=== PATIENT | female | born 1945 | race Hispanic/Latino ===

== ENCOUNTER 2021-09-03 11:16 | Inpatient (IN) | payer MEDICARE ==
[~2021-09-03] VITALS: Ht 154.9 cm; Wt 85.8 kg
[2021-09-03 11:39] LABS: BASOPHILS % (AUTO) 0.4 % (0.0-5.0); EOSINOPHILS % (AUTO) 1.5 % (0.0-8.0); HEMATOCRIT 39.3 % (36-48); LYMPHOCYTES % (AUTO) 16.2 % (21.0-51.0); MEAN CORPUSCULAR HEMOGLOBIN 32.3 pg (27.0-33.0); MEAN CORPUSCULAR HGB CONC 32.3 g/dL (32.0-36.0); MONOCYTES % (AUTO) 5.2 % (3.0-13.0); PLATELET COUNT (AUTO) 225 K/uL (130-400); RED BLOOD CELL COUNT(AUTO) 3.93 MIL/uL (4.00-5.50); RED CELL DISTRIBUTION WIDTH 13.4 % (11.0-15.5); WHITE BLOOD COUNT (AUTO) 13.8 K/uL (4.8-10.8)
[2021-09-03 11:53] LABS: CREATININE 0.8 mg/dL (0.5-1.5); POTASSIUM 3.6 mmol/L (3.5-5.1); PROTHROMBIN TIME 10.9 SEC (9.6-11.6)
[2021-09-03 11:54] LABS: PARTIAL THROMBOPLASTIN TIME 26.4 SEC (26.3-35.5)
[2021-09-03 12:04] LABS: ALBUMIN 3.3 g/dL (3.5-5.0); BILIRUBIN,TOTAL 0.3 mg/dL (0.2-1.0); MAGNESIUM 2.1 mg/dL (1.80-2.40); TOTAL PROTEIN, SERUM 6.6 g/dL (6.0-8.3)
[2021-09-03 12:20] LABS: B-TYPE NATRIURETIC PEPTIDE 19 pg/mL (0-100)
[2021-09-03] MEDS ORDERED: ENOXAPARIN SODIUM 80 MG/0.8 ML SQ SCH (12:30)
[2021-09-03] MEDS ORDERED: ASPIRIN 325MG TAB PO SCH (12:30)
[2021-09-03] MEDS ORDERED: MORPHINE 4 MG SYG IVP SCH (12:30)
[2021-09-03] MEDS ORDERED: NITROGLYCERIN 1GM OINT 1 INCH/1GM TD SCH (12:30)
[2021-09-03 13:07] LABS: APPEARANCE,URINE Clear (CLEAR); BILIRUBIN,URINE Negative (NEGATIVE); COLOR,URINE Yellow (YELLOW); GLUCOSE, URINE (UA) Negative (NEGATIVE); KETONES,URINE Negative (NEGATIVE); LEUKOCYTE ESTERASE ,URINE Moderate (NEGATIVE); NITRATE,URINE Negative (NEGATIVE); OCCULT BLOOD,URINE Negative (NEGATIVE); PH,URINE 5.5 (5.0-8.0); PROTEIN,URINE Negative (NEGATIVE); UROBILINOGEN,URINE 0.2 mg/dL (0.2-1.0)
[2021-09-03 13:42] LABS: BACTERIA,URINE Few /HPF (None Seen); RBC,URINE 0-1 /HPF (0-1)
[2021-09-03] MEDS ORDERED: LACTULOSE 20 GM/30 ML UDCUP PO PRN (14:30)
[2021-09-03] MEDS ORDERED: ACETAMINOPHEN 325 MG TAB PO PRN ×2 (14:30)
[2021-09-03] MEDS ORDERED: NITROGLYCERIN 1GM OINT 1 INCH/1GM TD PRN (14:30)
[2021-09-03] MEDS ORDERED: HYDRALAZINE 20MG/ML VIAL IV PRN (14:30)
[2021-09-03] MEDS ORDERED: ONDANSETRON 4MG INJ IV PRN (14:30)
[2021-09-03] MEDS ORDERED: DIPHENHYDRAMINE HCL 25 MG CAPSULE PO PRN (14:30)
[2021-09-03] MEDS: FAMOTIDINE 20MG TAB PO SCH (14:54)
[2021-09-03] MEDS: KETOROLAC 15MG/ML VIAL (15MG/ML) IM PRN (20:08)
[2021-09-03] MEDS: LEVOFLOXACIN 500 MG/D5W 100 ML 100 ML IV SCH (22:52)
[2021-09-04] MEDS ORDERED: KETOROLAC 30MG VIAL (30MG/ML) ONE ×2 (06:35→18:02)
[2021-09-04] MEDS: KETOROLAC 15MG/ML VIAL (15MG/ML) IM PRN ×2 (06:37→18:11)
[2021-09-04] MEDS: ASPIRIN 81MG CHEW TAB PO SCH (09:00)
[2021-09-04 09:27] LABS: HEMATOCRIT 37.4 % (36-48); MEAN CORPUSCULAR HGB CONC 32.4 g/dL (32.0-36.0); MEAN CORPUSCULAR VOLUME 98.9 fL (79-99); RED BLOOD CELL COUNT(AUTO) 3.78 MIL/uL (4.00-5.50); RED CELL DISTRIBUTION WIDTH 13.7 % (11.0-15.5); WHITE BLOOD COUNT (AUTO) 11.9 K/uL (4.8-10.8)
[2021-09-04] MEDS: METOPROLOL TARTRATE 50 MG TAB PO SCH (09:30)
[2021-09-04] MEDS: ISOSORBIDE MONONITRATE 20 MG TABLET PO SCH ×2 (09:30→22:18)
[2021-09-04 09:44] LABS: CREATININE 0.9 mg/dL (0.5-1.5); POTASSIUM 3.8 mmol/L (3.5-5.1)
[2021-09-04] MEDS: FAMOTIDINE 20MG TAB PO SCH (10:05)
[2021-09-04] MEDS: ENOXAPARIN SODIUM 40 MG/0.4 ML SYRINGE SQ SCH (10:05)
[2021-09-04] MEDS ORDERED: ISOS30TA92 PO (10:57)
[2021-09-04] MEDS ORDERED: MIRA50TA PO (10:57)
[2021-09-04] MEDS ORDERED: CETI10TA57 PO (10:57)
[2021-09-04] MEDS ORDERED: OMEP40CA21 PO (10:57)
[2021-09-04] MEDS ORDERED: METO-408 PO (10:57)
[2021-09-04] MEDS ORDERED: DULO60CA64 PO (10:57)
[2021-09-04] MEDS ORDERED: MECO10005 PO (10:57)
[2021-09-04] MEDS ORDERED: ASPI-1197 PO (10:57)
[2021-09-04] MEDS ORDERED: LORA0.5T83 PO (10:57)
[2021-09-04] MEDS ORDERED: FLUT16H NASAL (10:57)
[2021-09-04] MEDS: LEVOFLOXACIN 500 MG/D5W 100 ML 100 ML IV SCH (22:18)
[2021-09-04] MEDS ORDERED: ACETAMINOPHEN WITH CODEINE 1 TAB TAB PO ONE (22:30)
[2021-09-04] MEDS ORDERED: ACETAMINOPHEN WITH CODEINE 1 TAB TAB ONE (22:34)
[2021-09-04 23:40] VITALS: BP 140/77
[2021-09-05 04:00] VITALS: BP 121/63
[2021-09-05 07:14] LABS: HEMATOCRIT 33.6 % (36-48); MEAN CORPUSCULAR HEMOGLOBIN 32.1 pg (27.0-33.0); MEAN CORPUSCULAR HGB CONC 32.1 g/dL (32.0-36.0); RED BLOOD CELL COUNT(AUTO) 3.36 MIL/uL (4.00-5.50); RED CELL DISTRIBUTION WIDTH 13.7 % (11.0-15.5); WHITE BLOOD COUNT (AUTO) 9.6 K/uL (4.8-10.8)
[2021-09-05 07:23] LABS: CREATININE 0.9 mg/dL (0.5-1.5); POTASSIUM 3.9 mmol/L (3.5-5.1)
[2021-09-05 08:00] VITALS: BP 132/56
[2021-09-05] MEDS: FAMOTIDINE 20MG TAB PO SCH (08:02)
[2021-09-05] MEDS: ASPIRIN 81MG CHEW TAB PO SCH (08:03)
[2021-09-05] MEDS: METOPROLOL TARTRATE 50 MG TAB PO SCH (08:03)
[2021-09-05] MEDS: ISOSORBIDE MONONITRATE 20 MG TABLET PO SCH (08:03)
[2021-09-05] MEDS: ENOXAPARIN SODIUM 40 MG/0.4 ML SYRINGE SQ SCH (08:04)
[2021-09-05] MEDS ORDERED: NITR100C PO (08:41)
== END 2021-09-05 09:30 | disposition home or self-care (01) | DRG 303 ==
LOC: EDH 11:16 → EDHIP 14:26 → 4CH 09-05 00:10
PROVIDERS: ADMIT Internal Medicine; ATTEND Internal Medicine
DX: I25.110 Atherosclerotic heart disease of native coronary artery with unstable angina pectoris (principal); N39.0 Urinary tract infection, site not specified; E78.5 Hyperlipidemia, unspecified; I10 Essential (primary) hypertension; M06.9 Rheumatoid arthritis, unspecified; M79.7 Fibromyalgia; F32.A Depression, unspecified; Z20.822 Contact with and (suspected) exposure to COVID-19; Z88.8 Allergy status to other drugs, medicaments and biological substances; Z82.49 Family history of ischemic heart disease and other diseases of the circulatory system; Z90.49 Acquired absence of other specified parts of digestive tract; Z90.710 Acquired absence of both cervix and uterus; F41.9 Anxiety disorder, unspecified
CPT/HCPCS: 36415; 71045; 80048; 80053; 80061; 81001; 83735; 83874; 83880; 84484; 85025; 85027; 85378; 85610; 85651; 85730; 87088; 87635; 93005; 93970; G0378; J1650; J1885; J1956; J2270

== ENCOUNTER 2021-09-16 13:28 | Emergency (ER) | payer MEDICARE ==
[~2021-09-16] VITALS: Ht 154.9 cm; Wt 85.3 kg
[~2021-09-16 13:28] MED LIST: ASPI-1197 PO; CETI10TA57 PO; DULO60CA64 PO; FLUT16H NASAL; ISOS30TA92 PO; LORA0.5T83 PO; MECO10005 PO; METO-408 PO; MIRA50TA PO; NITR100C PO; OMEP40CA21 PO
[2021-09-16 13:35] VITALS: BP 164/79
[2021-09-16] MEDS ORDERED: ACETAMINOPHEN 500 MG TABLET PO ONE (14:00)
[2021-09-16] MEDS ORDERED: CLINDAMYCIN 150 MG CAP PO ONE (14:00)
[2021-09-16] MEDS ORDERED: ACET-2247 PO (14:18)
[2021-09-16] MEDS ORDERED: CLIN-141 PO (14:18)
== END 2021-09-16 14:27 | disposition home or self-care (01) ==
LOC: EDH 13:28
DX: I80.8 Phlebitis and thrombophlebitis of other sites (principal); I10 Essential (primary) hypertension; M19.90 Unspecified osteoarthritis, unspecified site; M79.7 Fibromyalgia; Z88.1 Allergy status to other antibiotic agents; Z79.82 Long term (current) use of aspirin; Z79.899 Other long term (current) drug therapy

== ENCOUNTER 2023-05-27 15:04 | Emergency (ER) | payer MEDICARE ==
[~2023-05-27] VITALS: Ht 154.9 cm; Wt 79.4 kg
[~2023-05-27 15:04] MED LIST changes: +ACET-2247 PO; +CLIN-141 PO
[2023-05-27 15:28] VITALS: O2SAT 97
[2023-05-27] MEDS ORDERED: FAMOTIDINE 20MG VIAL IV ONE (15:30)
[2023-05-27] MEDS ORDERED: KETOROLAC 30MG VIAL (30MG/ML) IVP ONE (15:30)
[2023-05-27] MEDS ORDERED: METOCLOPRAMIDE 10 MG/2 ML VIAL IVP ONE (15:30)
[2023-05-27 16:47] VITALS: BP 162/58; PULSE 80; RESP 18
[2023-05-27] MEDS ORDERED: ACET-2079 PO (17:25)
[2023-05-27] MEDS ORDERED: IBUP-2076 PO (17:29)
== END 2023-05-27 18:07 | disposition home or self-care (01) ==
LOC: EDH 15:04
DX: S83.92XA Sprain of unspecified site of left knee, initial encounter (principal); Z79.82 Long term (current) use of aspirin; Z79.899 Other long term (current) drug therapy; Z88.1 Allergy status to other antibiotic agents; W18.39XA Other fall on same level, initial encounter; Y93.89 Activity, other specified; Y92.89 Other specified places as the place of occurrence of the external cause; Y99.8 Other external cause status
CPT/HCPCS: 99284; 96374; 96375; 73564; J3490; J1885; J2765